=== PATIENT | male | born 1970 | race Caucasian/White ===

== ENCOUNTER 2016-07-11 15:07 | Emergency (ER) | payer SELFPAY ==
[~2016-07-11 15:07] MED LIST: AMITRIPTYLINE H25 M1 PO; BENTYL10 M1 PO; COMPAZINE10 MG PO; CYCLOBENZAPRINE10 M1 PO; GABAPENTIN300 M1 PO; GOODY'S PM POW1 EACH PO; IBUPROFEN600 M1 PO; LEXAPRO10 M2 PO; LISINOPRIL-HCT1 EAC2 PO; MULTIVITAMINS1 EAC6 PO; NAPROSYN500 M1 PO; NORCO 5-325 TA1 EACH PO; PROTONIX40 M2 PO; SERTRALINE HCL50 M4 PO; ULTRAM50 M1 PO
[2016-07-11] MEDS ORDERED: PREDNISONE10 M1 PO (18:21)
== END 2016-07-11 18:37 ==
LOC: EDMED 15:07
DX: M54.5 Low back pain (principal); G89.29 Other chronic pain; I10 Essential (primary) hypertension; K21.9 Gastro-esophageal reflux disease without esophagitis; Z79.899 Other long term (current) drug therapy
CPT/HCPCS: J2270

== ENCOUNTER 2016-07-13 02:29 | Inpatient (IN) | payer SELFPAY ==
[~2016-07-13 02:29] MED LIST changes: +PREDNISONE10 M1 PO
[2016-07-13 03:27] LABS: KETONE-BETA (WHOLE BLOOD) 4.5 mmol/L (0.0-0.6)
[2016-07-13 03:31] LABS: BASO % 0.1 % (0-2); HCT-HEMATOCRIT 40.6 % (36.0-53.5); HGB-HEMOGLOBIN 14.4 gm/dl (13.5-17.0); IMMATURE GRANULOCYTES ABSOLUTE 0.02 tho/cmm (0-0.03); IMMATURE GRANULOCYTES PERCENT 0.2 % (0-0.3); LYMPH % 9.9 % (20-45); LYMPH ABSOLUTE COUNT 0.8 tho/cmm (0.8-4.5); MCH (MEAN CORPUSCULAR HGB) 32.5 pg (28.0-32.0); MCHC MEAN CORPUSCULAR HGB CONC 35.5 % (32.0-36.0); MCV (MEAN CELL VOLUME) 91.6 fl (82.0-96.0); MEAN PLATELET VOLUME 10.1 cmc (9.4-12.4); MONO % 5.3 % (0-12); MONOCYTE ABSOLUTE COUNT 0.4 tho/cmm (0.0-1.2); NEUTROPHIL ABSOLUTE COUNT 6.8 tho/cmm (1.6-8.0); NEUTROPHIL-AUTOMATED 6.8 tho/cmm (1.6-8.0); NEUTROPHILS % 84.5 % (40-80); PLATELET COUNT 191 tho/cmm (150-450); RED BLOOD COUNT 4.43 mil/cmm (4.40-5.70); RED CELL DISTRIBUTION WIDTH 12.8 % (12.4-16.4); WHITE BLOOD COUNT 8.1 tho/cmm (4.0-10.0)
[2016-07-13 03:42] LABS: ALB/GLOB RATIO 1.1 (0.8-2.0); ALBUMIN 4.1 g/dl (3.5-5.0); ALKALINE PHOSPHATASE 134 U/L (33-138); ALT/SGPT 100 U/L (12-78); ANION GAP 27 mmol/L (0-20); AST/SGOT 162 U/L (10-40); BILIRUBIN,TOTAL 2.6 mg/dl (0.0-1.5); BLOOD UREA NITROGEN 15 mg/dl (6-24); CALCIUM 8.3 mg/dl (8.5-10.5); CARBON DIOXIDE-VENOUS 16 mmol/L (22-32); CHLORIDE 86 mmol/l (96-110); CREATININE 1.28 mg/dl (0.60-1.30); GLUCOSE 135 mg/dL (70-110); POTASSIUM 3.4 mmol/L (3.7-5.1); SODIUM 126 mmol/L (135-145); eGFR VALUE FOR BLACK 77 mL/Min
[2016-07-13 03:45] LABS: LIPASE 9549 U/L (73-393)
[2016-07-13 04:48] LABS: ALCOHOL (ETOH) 375 mg/dl (<10)
[2016-07-14 05:04] LABS: HGB-HEMOGLOBIN 13.2 gm/dl (13.5-17.0); PLATELET COUNT 135 tho/cmm (150-450)
[2016-07-14 08:10] LABS: BASO % 0.2 % (0-2); EOS % 0.3 % (0-7); HCT-HEMATOCRIT 39.8 % (36.0-53.5); HGB-HEMOGLOBIN 14.1 gm/dl (13.5-17.0); IMMATURE GRANULOCYTES ABSOLUTE 0.02 tho/cmm (0-0.03); IMMATURE GRANULOCYTES PERCENT 0.3 % (0-0.3); LYMPH % 13.7 % (20-45); LYMPH ABSOLUTE COUNT 0.8 tho/cmm (0.8-4.5); MCH (MEAN CORPUSCULAR HGB) 32.8 pg (28.0-32.0); MCHC MEAN CORPUSCULAR HGB CONC 35.4 % (32.0-36.0); MCV (MEAN CELL VOLUME) 92.6 fl (82.0-96.0); MEAN PLATELET VOLUME 9.9 cmc (9.4-12.4); MONO % 5.5 % (0-12); MONOCYTE ABSOLUTE COUNT 0.3 tho/cmm (0.0-1.2); NEUTROPHIL ABSOLUTE COUNT 4.8 tho/cmm (1.6-8.0); NEUTROPHIL-AUTOMATED 4.8 tho/cmm (1.6-8.0); PLATELET COUNT 124 tho/cmm (150-450)
[2016-07-14 08:40] LABS: ALBUMIN 3.7 g/dl (3.5-5.0); ALKALINE PHOSPHATASE 123 U/L (33-138); ALT/SGPT 83 U/L (12-78); AMYLASE 85 U/L (20-90); AST/SGOT 152 U/L (10-40); BILIRUBIN,TOTAL 3.1 mg/dl (0.0-1.5); BLOOD UREA NITROGEN 12 mg/dl (6-24); CALCIUM 8.4 mg/dl (8.5-10.5); CARBON DIOXIDE-VENOUS 24 mmol/L (22-32); CHLORIDE 91 mmol/l (96-110); GLUCOSE 94 mg/dL (70-110); SODIUM 131 mmol/L (135-145); eGFR VALUE FOR BLACK >90 mL/Min
[2016-07-14 08:54] LABS: ANION GAP 19 mmol/L (0-20); LIPASE 3827 U/L (73-393)
[2016-07-15 05:03] LABS: BASO % 0.7 % (0-2); EOS % 2.1 % (0-7); EOSINOPHIL ABSOLUTE COUNT 0.1 tho/cmm (0.0-0.7); HCT-HEMATOCRIT 36.7 % (36.0-53.5); HGB-HEMOGLOBIN 12.8 gm/dl (13.5-17.0); IMMATURE GRANULOCYTES ABSOLUTE 0.04 tho/cmm (0-0.03); IMMATURE GRANULOCYTES PERCENT 0.7 % (0-0.3); LYMPH % 8.8 % (20-45); LYMPH ABSOLUTE COUNT 0.5 tho/cmm (0.8-4.5); MCH (MEAN CORPUSCULAR HGB) 32.2 pg (28.0-32.0); MCHC MEAN CORPUSCULAR HGB CONC 34.9 % (32.0-36.0); MCV (MEAN CELL VOLUME) 92.2 fl (82.0-96.0); MEAN PLATELET VOLUME 10.3 cmc (9.4-12.4); MONO % 7.9 % (0-12); MONOCYTE ABSOLUTE COUNT 0.5 tho/cmm (0.0-1.2); NEUTROPHIL ABSOLUTE COUNT 4.5 tho/cmm (1.6-8.0); NEUTROPHIL-AUTOMATED 4.5 tho/cmm (1.6-8.0); NEUTROPHILS % 79.8 % (40-80); PLATELET COUNT 120 tho/cmm (150-450); RED BLOOD COUNT 3.98 mil/cmm (4.40-5.70); RED CELL DISTRIBUTION WIDTH 12.6 % (12.4-16.4); WHITE BLOOD COUNT 5.7 tho/cmm (4.0-10.0)
[2016-07-15 05:26] LABS: ALBUMIN 3.2 g/dl (3.5-5.0); ALKALINE PHOSPHATASE 118 U/L (33-138); ALT/SGPT 81 U/L (12-78); ANION GAP 12 mmol/L (0-20); AST/SGOT 165 U/L (10-40); BILIRUBIN,TOTAL 3.6 mg/dl (0.0-1.5); BLOOD UREA NITROGEN 7 mg/dl (6-24); CALCIUM 7.9 mg/dl (8.5-10.5); CARBON DIOXIDE-VENOUS 31 mmol/L (22-32); CHLORIDE 88 mmol/l (96-110); CREATININE 0.83 mg/dl (0.60-1.30); GLUCOSE 127 mg/dL (70-110); SODIUM 128 mmol/L (135-145); eGFR VALUE FOR BLACK >90 mL/Min
[2016-07-15 05:29] LABS: POTASSIUM 2.6 mmol/L (3.7-5.1)
[2016-07-15 12:19] LABS: BLOOD UREA NITROGEN 7 mg/dl (6-24); CALCIUM 8.3 mg/dl (8.5-10.5); CARBON DIOXIDE-VENOUS 31 mmol/L (22-32); CHLORIDE 90 mmol/l (96-110); CREATININE 0.66 mg/dl (0.60-1.30); GLUCOSE 115 mg/dL (70-110); SODIUM 130 mmol/L (135-145); eGFR VALUE FOR BLACK >90 mL/Min
[2016-07-15 12:20] LABS: ANION GAP 12 mmol/L (0-20); MAGNESIUM 1.8 mg/dl (1.3-2.6)
[2016-07-16 01:44] LABS: URINE SODIUM-RANDOM 50 mmol/L (20-110)
[2016-07-16 02:30] LABS: ALKALINE PHOSPHATASE 113 U/L (33-138); ANION GAP 11 mmol/L (0-20); BILIRUBIN,TOTAL 2.4 mg/dl (0.0-1.5); BLOOD UREA NITROGEN 10 mg/dl (6-24); CALCIUM 7.9 mg/dl (8.5-10.5); CARBON DIOXIDE-VENOUS 31 mmol/L (22-32); CHLORIDE 96 mmol/l (96-110); CREATININE 0.64 mg/dl (0.60-1.30); GLUCOSE 110 mg/dL (70-110); POTASSIUM 3.5 mmol/L (3.7-5.1); SODIUM 134 mmol/L (135-145); eGFR VALUE FOR BLACK >90 mL/Min
[2016-07-16 02:33] LABS: BASO % 0.2 % (0-2); EOS % 2.2 % (0-7); EOSINOPHIL ABSOLUTE COUNT 0.1 tho/cmm (0.0-0.7); HCT-HEMATOCRIT 34.2 % (36.0-53.5); HGB-HEMOGLOBIN 11.9 gm/dl (13.5-17.0); IMMATURE GRANULOCYTES ABSOLUTE 0.01 tho/cmm (0-0.03); IMMATURE GRANULOCYTES PERCENT 0.2 % (0-0.3); LYMPH % 17.5 % (20-45); LYMPH ABSOLUTE COUNT 0.8 tho/cmm (0.8-4.5); MCH (MEAN CORPUSCULAR HGB) 32.2 pg (28.0-32.0); MCHC MEAN CORPUSCULAR HGB CONC 34.8 % (32.0-36.0); MCV (MEAN CELL VOLUME) 92.7 fl (82.0-96.0); MONO % 10.5 % (0-12); MONOCYTE ABSOLUTE COUNT 0.5 tho/cmm (0.0-1.2); NEUTROPHIL ABSOLUTE COUNT 3.2 tho/cmm (1.6-8.0); NEUTROPHIL-AUTOMATED 3.2 tho/cmm (1.6-8.0); NEUTROPHILS % 69.4 % (40-80); PLATELET COUNT 131 tho/cmm (150-450); RED BLOOD COUNT 3.69 mil/cmm (4.40-5.70); RED CELL DISTRIBUTION WIDTH 12.6 % (12.4-16.4); WHITE BLOOD COUNT 4.6 tho/cmm (4.0-10.0)
[2016-07-16 02:36] LABS: URINE POTASSIUM RANDOM 57 mmol/L (12-62)
[2016-07-16 02:37] LABS: ALT/SGPT 128 U/L (12-78); AST/SGOT 292 U/L (10-40)
[2016-07-16] MEDS ORDERED: VANCOCIN HCL125 MG PO (11:20)
[2016-07-16] MEDS ORDERED: PRINIVIL20 M1 PO (11:22)
== END 2016-07-16 12:20 | DRG 372 ==
LOC: EDMED 02:29 → EMR2 05:33 → 5WF 07:24
PROVIDERS: Emergency Medicine; Family Medicine; Internal Medicine; Internal Medicine Gastroenterology; ADMIT Internal Medicine
DX: A04.7 Enterocolitis due to Clostridium difficile (principal); F10.239 Alcohol dependence with withdrawal, unspecified; E87.2 Acidosis; E87.0 Hyperosmolality and hypernatremia; E87.1 Hypo-osmolality and hyponatremia; D69.6 Thrombocytopenia, unspecified; K70.0 Alcoholic fatty liver; E87.6 Hypokalemia; I10 Essential (primary) hypertension; G89.29 Other chronic pain; M54.9 Dorsalgia, unspecified; M19.90 Unspecified osteoarthritis, unspecified site; F06.31 Mood disorder due to known physiological condition with depressive features; K21.9 Gastro-esophageal reflux disease without esophagitis; Y90.8 Blood alcohol level of 240 mg/100 ml or more; Z53.8 Procedure and treatment not carried out for other reasons
CPT/HCPCS: G0480; J1650; J2270; J2405; J3360; J3411; J3480; J7030; Q9967

== ENCOUNTER 2016-07-28 08:04 | Emergency (ER) | payer SELFPAY ==
[~2016-07-28 08:04] MED LIST changes: +PRINIVIL20 M1 PO; +VANCOCIN HCL125 MG PO
[2016-07-28 09:17] LABS: EOS % 0.7 % (0-7); HCT-HEMATOCRIT 38.9 % (36.0-53.5); HGB-HEMOGLOBIN 13.5 gm/dl (13.5-17.0); IMMATURE GRANULOCYTES PERCENT 0.5 % (0-0.3); LYMPH % 40.4 % (20-45); MCH (MEAN CORPUSCULAR HGB) 32.7 pg (28.0-32.0); MCHC MEAN CORPUSCULAR HGB CONC 34.7 % (32.0-36.0); MCV (MEAN CELL VOLUME) 94.2 fl (82.0-96.0); MEAN PLATELET VOLUME 8.7 cmc (9.4-12.4); MONO % 5.5 % (0-12); NEUTROPHIL-AUTOMATED 2.1 tho/cmm (1.6-8.0); NEUTROPHILS % 49.3 % (40-80); PLATELET COUNT 281 tho/cmm (150-450); RED BLOOD COUNT 4.13 mil/cmm (4.40-5.70); RED CELL DISTRIBUTION WIDTH 14.3 % (12.4-16.4); WHITE BLOOD COUNT 4.2 tho/cmm (4.0-10.0)
[2016-07-28 09:18] LABS: BASO % 3.6 % (0-2); BASO ABSOLUTE COUNT 0.2 tho/cmm (0.0-0.2); IMMATURE GRANULOCYTES ABSOLUTE 0.02 tho/cmm (0-0.03); LYMPH ABSOLUTE COUNT 1.7 tho/cmm (0.8-4.5); MONOCYTE ABSOLUTE COUNT 0.2 tho/cmm (0.0-1.2); NEUTROPHIL ABSOLUTE COUNT 2.1 tho/cmm (1.6-8.0)
[2016-07-28] MEDS ORDERED: ZYLOPRIM300 M1 PO (09:23)
[2016-07-28] MEDS ORDERED: DICLOFENAC SODI75 M2 PO (09:23)
[2016-07-28] MEDS ORDERED: RISPERDAL0.5 M2 PO (09:23)
[2016-07-28 09:40] LABS: ALB/GLOB RATIO 0.9 (0.8-2.0); ALBUMIN 3.6 g/dl (3.5-5.0); ALKALINE PHOSPHATASE 224 U/L (33-138); ALT/SGPT 118 U/L (12-78); ANION GAP 19 mmol/L (0-20); BILIRUBIN,TOTAL 0.7 mg/dl (0.0-1.5); BLOOD UREA NITROGEN 6 mg/dl (6-24); CALCIUM 7.9 mg/dl (8.5-10.5); CARBON DIOXIDE-VENOUS 25 mmol/L (22-32); CHLORIDE 100 mmol/l (96-110); GLUCOSE 90 mg/dL (70-110); POTASSIUM 3.6 mmol/L (3.7-5.1); SODIUM 140 mmol/L (135-145)
[2016-07-28 09:41] LABS: SALICYLATE <2.8 mg/dl (2.8-20)
[2016-07-28 10:13] LABS: AST/SGOT 246 U/L (10-40); CREATININE 0.68 mg/dl (0.60-1.30); eGFR VALUE FOR BLACK >90 mL/Min
[2016-07-28 10:23] LABS: ACETAMINOPHEN LEVEL <2.1 ug/ml (10-30)
[2016-07-28 10:24] LABS: ALCOHOL (ETOH) 402 mg/dl (<10)
== END 2016-07-28 13:50 ==
LOC: EDMED 08:04
PROVIDERS: Emergency Medicine
DX: F10.129 Alcohol abuse with intoxication, unspecified (principal); I10 Essential (primary) hypertension; K21.9 Gastro-esophageal reflux disease without esophagitis; Z88.0 Allergy status to penicillin
CPT/HCPCS: G0480

== ENCOUNTER 2016-08-31 15:20 | Emergency (ER) | payer SELFPAY ==
[~2016-08-31 15:20] MED LIST changes: +DICLOFENAC SODI75 M2 PO; +RISPERDAL0.5 M2 PO; +ZYLOPRIM300 M1 PO
[2016-08-31 16:32] LABS: BASO % 1.7 % (0-2); BASO ABSOLUTE COUNT 0.1 tho/cmm (0.0-0.2); HCT-HEMATOCRIT 41.1 % (36.0-53.5); HGB-HEMOGLOBIN 14.2 gm/dl (13.5-17.0); IMMATURE GRANULOCYTES ABSOLUTE 0.02 tho/cmm (0-0.03); IMMATURE GRANULOCYTES PERCENT 0.3 % (0-0.3); LYMPH % 32.8 % (20-45); LYMPH ABSOLUTE COUNT 1.9 tho/cmm (0.8-4.5); MCH (MEAN CORPUSCULAR HGB) 31.6 pg (28.0-32.0); MCHC MEAN CORPUSCULAR HGB CONC 34.5 % (32.0-36.0); MCV (MEAN CELL VOLUME) 91.3 fl (82.0-96.0); MEAN PLATELET VOLUME 8.8 cmc (9.4-12.4); MONO % 3.2 % (0-12); MONOCYTE ABSOLUTE COUNT 0.2 tho/cmm (0.0-1.2); NEUTROPHIL ABSOLUTE COUNT 3.6 tho/cmm (1.6-8.0); NEUTROPHIL-AUTOMATED 3.6 tho/cmm (1.6-8.0); PLATELET COUNT 287 tho/cmm (150-450); RED CELL DISTRIBUTION WIDTH 12.9 % (12.4-16.4); WHITE BLOOD COUNT 5.9 tho/cmm (4.0-10.0)
[2016-08-31 16:48] LABS: ALB/GLOB RATIO 1.1 (0.8-2.0); ALBUMIN 3.8 g/dl (3.5-5.0); ALKALINE PHOSPHATASE 94 U/L (33-138); ALT/SGPT 54 U/L (12-78); ANION GAP 16 mmol/L (0-20); AST/SGOT 88 U/L (10-40); BILIRUBIN,TOTAL 0.4 mg/dl (0.0-1.5); BLOOD UREA NITROGEN 11 mg/dl (6-24); CALCIUM 8.7 mg/dl (8.5-10.5); CARBON DIOXIDE-VENOUS 24 mmol/L (22-32); CHLORIDE 104 mmol/l (96-110); GLUCOSE 92 mg/dL (70-110); POTASSIUM 3.2 mmol/L (3.7-5.1); SODIUM 141 mmol/L (135-145); eGFR VALUE FOR BLACK >90 mL/Min
[2016-08-31 16:53] LABS: ALCOHOL (ETOH) 301 mg/dl (<10)
== END 2016-08-31 18:36 ==
LOC: EDMED 15:20
PROVIDERS: Emergency Medicine
DX: F10.129 Alcohol abuse with intoxication, unspecified (principal); Y90.0 Blood alcohol level of less than 20 mg/100 ml; E87.6 Hypokalemia; I10 Essential (primary) hypertension; F17.200 Nicotine dependence, unspecified, uncomplicated; Z79.899 Other long term (current) drug therapy
CPT/HCPCS: G0480